=== PATIENT | male | born 2005 | race Caucasian/White ===

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

== ENCOUNTER 2024-08-12 20:10 | Emergency (ER) | payer SELFPAY ==
[2024-08-12] MEDS: Albuterol/Ipratropium 3.0-0.5 MG/3 ML Neb Soln NEB ONE ×2 (20:32→20:50)
[2024-08-13 01:24] VITALS: BP 135/97
[2024-08-13 01:33] VITALS: PULSE 110
== END 2024-08-12 21:00 | disposition home or self-care (01) ==
LOC: SUPCPDRO 20:10 → KA.ED 20:10
DX: J45.909 Unspecified asthma, uncomplicated (principal); Z91.09 Other allergy status, other than to drugs and biological substances
CPT/HCPCS: 94640; 99284; J7620-GY

== ENCOUNTER 2025-01-30 15:35 | Emergency (ER) | payer SELFPAY ==
[2025-01-30] MEDS ORDERED: Cephalexin 250 MG Cap PO ONE (16:50)
[2025-01-30 17:01] LABS: BASOPHILS ABSOLUTE AUTO 0.05 10^3/uL (0.00-0.10); BASOPHILS PERCENT AUTO 0.7 % (0.0-1.0); EOSINOPHILS ABSOLUTE AUTO 0.11 10^3/uL (0.10-0.30); EOSINOPHILS PERCENT AUTO 1.6 % (1.0-3.0); HEMATOCRIT 45.6 % (40.0-52.0); HEMOGLOBIN 15.4 g/dL (13.0-17.0); LYMPHOCYTES ABSOLUTE AUTO 1.88 10^3/uL (1.00-4.00); LYMPHOCYTES PERCENT AUTO 26.6 % (20.0-40.0); MEAN CORPUSCULAR HEMOGLOBIN 29.1 pg (27.0-31.0); MEAN CORPUSCULAR HGB CONC 33.8 g/dL (32.0-36.0); MEAN PLATELET VOLUME 10.8 fL (7.4-10.4); MONOCYTES ABSOLUTE AUTO 0.41 10^3/uL (0.10-0.80); MONOCYTES PERCENT AUTO 5.8 % (2.0-8.0); NEUTROPHILS ABSOLUTE AUTO 4.62 10^3/uL (2.50-7.00); NEUTROPHILS PERCENT AUTO 65.3 % (50.0-70.0); PLATELET COUNT,PLT 249 10^3/uL (150-400); RED CELL DISTRIBUTION WIDTH 12.3 % (11.5-14.5); WHITE BLOOD CELL COUNT,WBC 7.07 10^3/uL (5.00-10.00)
[2025-01-30] MEDS: Cephalexin 250 MG Cap PO ONE ×2 (17:01)
== END 2025-01-30 17:12 | disposition home or self-care (01) ==
LOC: KA.ED 15:35
DX: L60.0 Ingrowing nail (principal); J45.909 Unspecified asthma, uncomplicated; Z91.048 Other nonmedicinal substance allergy status; Z79.899 Other long term (current) drug therapy
CPT/HCPCS: 36415; 73630-LT; 85025; 99283; A9270-GY